=== PATIENT | male | born 1960 | race Caucasian/White ===

== ENCOUNTER 2017-08-31 14:12 | Emergency (ER) | payer MEDICARE, MEDICAID ==
[~2017-08-31] VITALS: Ht 165.1 cm; Wt 75.0 kg
[2017-08-31 18:20] LABS: BASOPHILS % 0.9 % (0.0-2.0); EOSINOPHILS % 1.9 % (0.0-5.0); HEMATOCRIT. 34.7 % (42.0-52.0); HEMOGLOBIN. 11.5 g/dL (14.0-18.0); LYMPHOCYTES % 16.5 % (20.0-50.0); MEAN CORPUSCULAR HEMOGLOBIN 30.6 pg (28.0-32.0); MEAN CORPUSCULAR VOLUME 92.3 fL (80.0-94.0); MEAN PLATELET VOLUME 8.2 fl (7.4-10.4); NEUTROPHILS % 67.7 % (40.0-76.0); PLATELET 147 x1000/uL (130-400); RED BLOOD CELL COUNT 3.76 mill/uL (4.7-6.1); RED CELL DISTRIBUTION WIDTH 14.5 % (11.6-14.6)
[2017-08-31 18:25] LABS: CHLORIDE 96 mEq/L (98-107)
[2017-08-31 18:27] LABS: INR 1.1; PARTIAL THROMBOPLASTIN TIME 28.2 sec (23.4-31.0); PROTHROMBIN TIME 11.6 sec (9.4-11.6)
[2017-08-31] MEDS ORDERED: HYDROCODONE/ACETAMINOPHEN 5/325MG TABLET PO ONE (18:45)
[2017-08-31 20:15] VITALS: BP 135/92
== END 2017-08-31 22:06 | disposition home or self-care (01) ==
LOC: ER 14:20
DX: S40.012A Contusion of left shoulder, initial encounter (principal); I12.0 Hypertensive chronic kidney disease with stage 5 chronic kidney disease or end stage renal disease; E11.22 Type 2 diabetes mellitus with diabetic chronic kidney disease; N18.6 End stage renal disease; I48.91 Unspecified atrial fibrillation; I69.354 Hemiplegia and hemiparesis following cerebral infarction affecting left non-dominant side; Z79.01 Long term (current) use of anticoagulants; W18.30XA Fall on same level, unspecified, initial encounter; Y93.89 Activity, other specified; Y92.018 Other place in single-family (private) house as the place of occurrence of the external cause
CPT/HCPCS: 36415; 70450; 71045; 73030; 80053; 83690; 83880; 84484; 85025; 85610; 85730; 93005; 99285; A4565

== ENCOUNTER 2019-04-10 15:10 | Inpatient (IN) | payer MEDICARE, MEDICAID ==
[~2019-04-10] VITALS: Ht 165.1 cm; Wt 58.1 kg
[2019-04-10 16:00] VITALS: BP 138/77
[2019-04-10] MEDS ORDERED: ONDANSETRON HCL 4MG/2ML INJ IV PRN (16:30)
[2019-04-10] MEDS ORDERED: DIPHENHYDRAMINE 50MG/ML VIAL IV PRN (16:30)
[2019-04-10] MEDS ORDERED: CLONIDINE 0.1MG TABLET PO PRN (16:30)
[2019-04-10 16:58] VITALS: BP 132/79
[2019-04-10 18:05] LABS: BASOPHILS % 0.5 % (0.0-2.0); EOSINOPHILS % 0.7 % (0.0-5.0); HEMATOCRIT. 31.9 % (42.0-52.0); HEMOGLOBIN. 10.6 g/dL (14.0-18.0); LYMPHOCYTES % 15.2 % (20.0-50.0); MEAN CORPUSCULAR HEMOGLOBIN 29.9 pg (28.0-32.0); MEAN CORPUSCULAR VOLUME 89.9 fL (80.0-94.0); MEAN PLATELET VOLUME 7.8 fl (7.4-10.4); MONOCYTES % 12.8 % (2.0-8.0); NEUTROPHILS % 70.8 % (40.0-76.0); PLATELET 239 x1000/uL (130-400); RED BLOOD CELL COUNT 3.55 mill/uL (4.7-6.1)
[2019-04-10 18:18] LABS: PHOSPHORUS 4.8 mg/dL (2.5-4.9)
[2019-04-10 18:22] LABS: T4 FREE 1.1 ng/dL (0.76-1.46)
[2019-04-10] MEDS ORDERED: VANCOMYCIN 1 G PREMIX 200 ML IV NR (18:30)
[2019-04-10 20:00] VITALS: BP 159/81
[2019-04-10] MEDS ORDERED: DEXTROSE 50% WATER 50ML SYRINGE IV PRN (21:00)
[2019-04-10] MEDS: INSULIN LISPRO 100 UNITS/ML SUBCUT SCH (21:19)
[2019-04-10] MEDS: BLOOD SUGAR DIAGNOSTIC STRIP TEST SCH (21:19)
[2019-04-10] MEDS ORDERED: POTASSIUM CHLORIDE 20MEQ/PACKET PO NR (21:30)
[2019-04-11] VITALS: BP 136/52
[2019-04-11 04:00] VITALS: BP 124/51
[2019-04-11] MEDS: BLOOD SUGAR DIAGNOSTIC STRIP TEST SCH ×4 (06:52→21:00)
[2019-04-11] MEDS: INSULIN LISPRO 100 UNITS/ML SUBCUT SCH ×4 (06:52→22:35)
[2019-04-11 07:25] LABS: BASOPHILS % 0.7 % (0.0-2.0); HEMATOCRIT. 30.9 % (42.0-52.0); HEMOGLOBIN. 10.3 g/dL (14.0-18.0); LYMPHOCYTES % 16.7 % (20.0-50.0); MEAN CORPUSCULAR HEMOGLOBIN 29.9 pg (28.0-32.0); MEAN CORPUSCULAR VOLUME 89.6 fL (80.0-94.0); NEUTROPHILS % 67.6 % (40.0-76.0); PLATELET 238 x1000/uL (130-400); RED BLOOD CELL COUNT 3.44 mill/uL (4.7-6.1); RED CELL DISTRIBUTION WIDTH 14.9 % (11.6-14.6)
[2019-04-11 08:00] VITALS: BP 112/72
[2019-04-11] MEDS ORDERED: LORAZEPAM 1MG TABLET PO SCH (09:45)
[2019-04-11] MEDS: FOLIC ACID/VITAMIN B COMP W-C TABLET PO SCH (09:51)
[2019-04-11] MEDS: METOPROLOL TARTRATE 25MG TABLET PO SCH ×2 (09:52→22:19)
[2019-04-11] MEDS: ASPIRIN 325MG EC TABLET PO SCH (09:53)
[2019-04-11] MEDS ORDERED: VANCOMYCIN 500 MG PREMIX 100 ML IV SCH (12:00)
[2019-04-11] MEDS: SEVELAMER CARBONATE 800 MG TABLET PO SCH ×2 (12:09→16:54)
[2019-04-11] MEDS ORDERED: IOHEXOL-350 100 ML BOTTLE ONE (15:10)
[2019-04-11 16:00] VITALS: BP 124/82
[2019-04-11 17:00] VITALS: BP 147/62
[2019-04-11 20:00] VITALS: BP 138/58
[2019-04-12] VITALS: BP 141/59
[2019-04-12 04:00] VITALS: BP 144/46
[2019-04-12] MEDS: BLOOD SUGAR DIAGNOSTIC STRIP TEST SCH ×4 (07:20→21:59)
[2019-04-12 07:58] LABS: BASOPHILS % 0.7 % (0.0-2.0); EOSINOPHILS % 0.9 % (0.0-5.0); HEMATOCRIT. 31.3 % (42.0-52.0); HEMOGLOBIN. 10.5 g/dL (14.0-18.0); LYMPHOCYTES % 10.4 % (20.0-50.0); MEAN CORPUSCULAR HEMOGLOBIN 30.3 pg (28.0-32.0); MEAN CORPUSCULAR VOLUME 90.4 fL (80.0-94.0); MEAN PLATELET VOLUME 8.1 fl (7.4-10.4); MONOCYTES % 9.9 % (2.0-8.0); NEUTROPHILS % 78.1 % (40.0-76.0); PLATELET 239 x1000/uL (130-400); RED BLOOD CELL COUNT 3.46 mill/uL (4.7-6.1); RED CELL DISTRIBUTION WIDTH 15.3 % (11.6-14.6)
[2019-04-12 08:00] VITALS: BP 146/56
[2019-04-12 09:15] LABS: PHOSPHORUS 4.9 mg/dL (2.5-4.9)
[2019-04-12] MEDS: INSULIN LISPRO 100 UNITS/ML SUBCUT SCH ×4 (09:17→22:18)
[2019-04-12] MEDS: ASPIRIN 325MG EC TABLET PO SCH (09:21)
[2019-04-12] MEDS: METOPROLOL TARTRATE 25MG TABLET PO SCH (09:21)
[2019-04-12] MEDS: FOLIC ACID/VITAMIN B COMP W-C TABLET PO SCH (09:21)
[2019-04-12] MEDS: SEVELAMER CARBONATE 800 MG TABLET PO SCH ×3 (09:22→18:22)
[2019-04-12] MEDS: ACETAMINOPHEN 325MG TABLET PO PRN (09:27)
[2019-04-12 12:00] VITALS: BP 142/58
[2019-04-12 16:00] VITALS: BP 144/91
[2019-04-12] MEDS ORDERED: VANCOMYCIN 750 MG PREMIX 150 ML IV SCH (17:00)
[2019-04-12] MEDS ORDERED: PIPERACILLIN/TAZOBACTAM 2.25 G in DEXTROSE 5% WATER 50 ML IV SCH (17:00)
[2019-04-12 20:00] VITALS: BP 145/74
[2019-04-12] MEDS: METOPROLOL TARTRATE 50MG TABLET PO SCH (21:59)
[2019-04-13] VITALS: BP 131/75
[2019-04-13 04:00] VITALS: BP 124/43
[2019-04-13] MEDS: PIPERACILLIN/TAZOBACTAM 2.25 G in DEXTROSE 5% WATER 50 ML IV SCH ×2 (05:33→18:03)
[2019-04-13] MEDS: BLOOD SUGAR DIAGNOSTIC STRIP TEST SCH ×4 (07:02→21:21)
[2019-04-13] MEDS: INSULIN LISPRO 100 UNITS/ML SUBCUT SCH ×4 (07:02→21:00)
[2019-04-13 07:26] LABS: BASOPHILS % 0.6 % (0.0-2.0); EOSINOPHILS % 0.8 % (0.0-5.0); HEMATOCRIT. 32.1 % (42.0-52.0); HEMOGLOBIN. 10.8 g/dL (14.0-18.0); LYMPHOCYTES % 10.6 % (20.0-50.0); MEAN CORPUSCULAR HEMOGLOBIN 30.2 pg (28.0-32.0); MEAN CORPUSCULAR VOLUME 89.7 fL (80.0-94.0); MEAN PLATELET VOLUME 8.2 fl (7.4-10.4); MONOCYTES % 7.1 % (2.0-8.0); NEUTROPHILS % 80.9 % (40.0-76.0); PLATELET 223 x1000/uL (130-400); RED BLOOD CELL COUNT 3.57 mill/uL (4.7-6.1); RED CELL DISTRIBUTION WIDTH 15.2 % (11.6-14.6)
[2019-04-13 08:00] VITALS: BP 105/63
[2019-04-13] MEDS: SEVELAMER CARBONATE 800 MG TABLET PO SCH ×3 (08:45→18:04)
[2019-04-13] MEDS: FOLIC ACID/VITAMIN B COMP W-C TABLET PO SCH (08:46)
[2019-04-13] MEDS: ACETAMINOPHEN 325MG TABLET PO PRN (08:47)
[2019-04-13] MEDS: METOPROLOL TARTRATE 50MG TABLET PO SCH ×2 (09:00→23:51)
[2019-04-13] MEDS: ASPIRIN 325MG EC TABLET PO SCH (09:00)
[2019-04-13 10:12] LABS: PHOSPHORUS 5.9 mg/dL (2.5-4.9)
[2019-04-13] MEDS: INSULIN GLARGINE UD 100 UNITS/ML SYR SUBCUT SCH (10:57)
[2019-04-13 12:00] VITALS: BP 142/58
[2019-04-13] MEDS ORDERED: LORAZEPAM 1MG TABLET PO NR (12:45)
[2019-04-13] MEDS ORDERED: LORAZEPAM 2MG/ML CPJ IV NR (13:00)
[2019-04-13] MEDS ORDERED: VANCOMYCIN 500 MG PREMIX 100 ML IV NR (16:00)
[2019-04-13 18:06] LABS: VITAMIN B12 SERUM 1463 pg/mL (211-911)
[2019-04-14] VITALS (7 sets, daily range): BP systolic 109–158; BP diastolic 43–74
[2019-04-14] MEDS: BLOOD SUGAR DIAGNOSTIC STRIP TEST SCH ×4 (07:58→20:27)
[2019-04-14] MEDS: INSULIN LISPRO 100 UNITS/ML SUBCUT SCH ×4 (09:31→20:42)
[2019-04-14] MEDS: SEVELAMER CARBONATE 800 MG TABLET PO SCH ×3 (09:32→18:24)
[2019-04-14] MEDS: FOLIC ACID/VITAMIN B COMP W-C TABLET PO SCH (09:33)
[2019-04-14] MEDS: ASPIRIN 325MG EC TABLET PO SCH (09:33)
[2019-04-14] MEDS: METOPROLOL TARTRATE 50MG TABLET PO SCH ×2 (09:33→20:41)
[2019-04-14] MEDS: INSULIN GLARGINE UD 100 UNITS/ML SYR SUBCUT SCH (12:32)
[2019-04-14] MEDS: PIPERACILLIN/TAZOBACTAM 2.25 G in DEXTROSE 5% WATER 50 ML IV SCH (18:00)
[2019-04-15] VITALS: BP 117/71
[2019-04-15 04:00] VITALS: BP 100/52
[2019-04-15] MEDS: PIPERACILLIN/TAZOBACTAM 2.25 G in DEXTROSE 5% WATER 50 ML IV SCH (06:00)
[2019-04-15 06:03] LABS: BASOPHILS % 0.3 % (0.0-2.0); EOSINOPHILS % 0.7 % (0.0-5.0); HEMATOCRIT. 29.5 % (42.0-52.0); HEMOGLOBIN. 9.9 g/dL (14.0-18.0); LYMPHOCYTES % 11.9 % (20.0-50.0); MEAN CORPUSCULAR HEMOGLOBIN 30.2 pg (28.0-32.0); MEAN CORPUSCULAR VOLUME 89.8 fL (80.0-94.0); MONOCYTES % 11.5 % (2.0-8.0); NEUTROPHILS % 75.6 % (40.0-76.0); PLATELET 211 x1000/uL (130-400); RED BLOOD CELL COUNT 3.29 mill/uL (4.7-6.1); RED CELL DISTRIBUTION WIDTH 15.3 % (11.6-14.6)
[2019-04-15 06:33] LABS: PHOSPHORUS 4.4 mg/dL (2.5-4.9)
[2019-04-15] MEDS: INSULIN LISPRO 100 UNITS/ML SUBCUT SCH ×4 (07:17→21:57)
[2019-04-15] MEDS: BLOOD SUGAR DIAGNOSTIC STRIP TEST SCH ×4 (07:17→21:58)
[2019-04-15 08:00] VITALS: BP 131/49
[2019-04-15] MEDS: FOLIC ACID/VITAMIN B COMP W-C TABLET PO SCH (08:30)
[2019-04-15] MEDS: SEVELAMER CARBONATE 800 MG TABLET PO SCH ×3 (08:30→18:06)
[2019-04-15] MEDS: ASPIRIN 325MG EC TABLET PO SCH (08:30)
[2019-04-15] MEDS: METOPROLOL TARTRATE 50MG TABLET PO SCH ×2 (08:32→21:58)
[2019-04-15] MEDS ORDERED: LEVOFLOXACIN 250MG TABLET PO SCH (11:00)
[2019-04-15] MEDS: INSULIN GLARGINE UD 100 UNITS/ML SYR SUBCUT SCH (11:21)
[2019-04-15 12:00] VITALS: BP 141/64
[2019-04-15] MEDS ORDERED: NEPVIT PO (12:56)
[2019-04-15] MEDS ORDERED: METO-539 PO (12:56)
[2019-04-15] MEDS ORDERED: LANTUSUD SUBCUT (12:56)
[2019-04-15] MEDS ORDERED: ASPI325T85 PO (12:56)
[2019-04-15 16:00] VITALS: BP 101/58
[2019-04-15 20:00] VITALS: BP 144/66
[2019-04-16] VITALS (7 sets, daily range): BP systolic 110–158; BP diastolic 47–83
[2019-04-16 07:01] LABS: BASOPHILS % 0.6 % (0.0-2.0); HEMATOCRIT. 34.1 % (42.0-52.0); HEMOGLOBIN. 11.2 g/dL (14.0-18.0); MEAN CORPUSCULAR HEMOGLOBIN 29.7 pg (28.0-32.0); MEAN CORPUSCULAR VOLUME 90.2 fL (80.0-94.0); MONOCYTES % 10.2 % (2.0-8.0); NEUTROPHILS % 76.2 % (40.0-76.0); PLATELET 242 x1000/uL (130-400); RED BLOOD CELL COUNT 3.78 mill/uL (4.7-6.1); RED CELL DISTRIBUTION WIDTH 14.9 % (11.6-14.6)
[2019-04-16] MEDS: BLOOD SUGAR DIAGNOSTIC STRIP TEST SCH ×3 (07:30→18:06)
[2019-04-16] MEDS: INSULIN LISPRO 100 UNITS/ML SUBCUT SCH ×3 (07:50→18:27)
[2019-04-16 08:08] LABS: CHLORIDE 95 mEq/L (98-107)
[2019-04-16] MEDS: FOLIC ACID/VITAMIN B COMP W-C TABLET PO SCH (09:10)
[2019-04-16] MEDS: ASPIRIN 325MG EC TABLET PO SCH (09:10)
[2019-04-16] MEDS: METOPROLOL TARTRATE 50MG TABLET PO SCH (09:10)
[2019-04-16] MEDS: INSULIN GLARGINE UD 100 UNITS/ML SYR SUBCUT SCH (09:18)
[2019-04-16] MEDS: SEVELAMER CARBONATE 800 MG TABLET PO SCH ×3 (09:22→18:14)
[2019-04-16] MEDS ORDERED: VANCOMYCIN 750 MG PREMIX 150 ML IV NR (16:00)
[2019-04-16] MEDS ORDERED: EPOETIN ALFA 4000UNITS/ML VIAL SUBCUT SCH (21:00)
== END 2019-04-16 20:48 | disposition home or self-care (01) | DRG 299 ==
LOC: 6EST 15:10
PROVIDERS: ADMIT Internal Medicine; ATTEND Internal Medicine
DX: E11.52 Type 2 diabetes mellitus with diabetic peripheral angiopathy with gangrene (principal); N18.6 End stage renal disease; I13.2 Hypertensive heart and chronic kidney disease with heart failure and with stage 5 chronic kidney disease, or end stage renal disease; E87.1 Hypo-osmolality and hyponatremia; L03.116 Cellulitis of left lower limb; N25.81 Secondary hyperparathyroidism of renal origin; I48.20 Chronic atrial fibrillation, unspecified; I69.354 Hemiplegia and hemiparesis following cerebral infarction affecting left non-dominant side; M86.8X7 Other osteomyelitis, ankle and foot; I96 Gangrene, not elsewhere classified; E11.69 Type 2 diabetes mellitus with other specified complication; D63.8 Anemia in other chronic diseases classified elsewhere; E11.22 Type 2 diabetes mellitus with diabetic chronic kidney disease; E83.41 Hypermagnesemia; E83.39 Other disorders of phosphorus metabolism; E87.6 Hypokalemia; S91.312A Laceration without foreign body, left foot, initial encounter; E11.42 Type 2 diabetes mellitus with diabetic polyneuropathy; F03.90 Unspecified dementia, unspecified severity, without behavioral disturbance, psychotic disturbance, mood disturbance, and anxiety; I50.9 Heart failure, unspecified; J44.9 Chronic obstructive pulmonary disease, unspecified; F41.9 Anxiety disorder, unspecified; Z99.2 Dependence on renal dialysis; Z79.4 Long term (current) use of insulin; Z79.82 Long term (current) use of aspirin; Z82.49 Family history of ischemic heart disease and other diseases of the circulatory system; Z79.899 Other long term (current) drug therapy; Z99.3 Dependence on wheelchair
CPT/HCPCS: 36415; 71045; 73620; 73721; 75635; 80048; 80053; 80061; 80202; 82607; 82962; 83735; 84100; 84439; 84443; 84484; 85025; 87070; 87077; 87186; 93005; 93306; 93923; 93970; C1893; J1815; J2060; J2543; J3370; J7040; J7060; Q9967